=== PATIENT | male | born 1970 | race Caucasian/White ===

== ENCOUNTER 2018-09-06 03:00 | Emergency (ER) | payer BC ==
[~2018-09-06] VITALS: Wt 93.2 kg
[2018-09-06] MEDS ORDERED: EPINEPHrine 1 MG INJ IM STA (03:25)
[2018-09-06] MEDS ORDERED: DIPHENHYDRAMINE 50 MG INJ IV STA (03:25)
[2018-09-06] MEDS ORDERED: FAMOTIDINE 20 MG INJ IV STA (03:25)
[2018-09-06] MEDS ORDERED: METHYLPREDNISOLONE 125 MG INJ IV STA (03:25)
[2018-09-06] MEDS ORDERED: BEN25 PO (04:19)
[2018-09-06] MEDS ORDERED: PRED20TA PO (04:19)
[2018-09-06] MEDS ORDERED: FAMO-96 PO (04:19)
[2018-09-06] MEDS ORDERED: EPIN0.3P4 INJ (04:19)
[2018-09-06 05:05] VITALS: BP 137/85; PULSE 86; RESP 20
--- NOTE | 2018-09-06 05:21 | ERD ---
ER Documentation Chief Complaint Chief Complaint FACIAL SWELLING, ALLERGIC RASH HPI This is a 47-year-old male with no significant past medical history who is presenting with concerns of an allergic reaction. This evening after eating a peanut bar, the patient started to develop an itchy throat. He was concerned t hat his throat was closing. The patient also noticed facial and labial swelling. The patient had no tongue swelling. The patient also developed diffuse hives that were itchy as well. The patient reports that his voice seemed to change. However, he does not sound hoarse. He has not had any drooling episodes. He does not have stridor. He does not have wheezing. The patient is breathing comfortably and is in no distress at this time. The etiology of the reaction is not entirely clear. The patient has eaten peanuts his entire life. However, the patient reports that he has been eating more peanut bars recently. The patient also reports eating up with a local this afternoon, but this is also not new for him. The patient does not endorse any new clothes or linens or soaps or detergents or lotions. He has not been in any new environments for a prolonged period of time. The patient is not on any ROBINA inhibitors or angiotensin receptor blockers. The patient does not take any medications. The patient denies feeling sick recently. The patient denies fever or chills. The patient has had no headache or vision changes. The patient does not endorse neck or back pain. The patient denies lightheadedness or dizziness. The patient has had no chest pain or trouble breathing. The patient denies nausea or vomiting. The patient denies abdominal pain. The patient denies changes to bowel movements or urination. The patient has had no focal deficits. The patient has had no weakness or numbness or tingling to the face or extremities. ROS All systems reviewed and are negative except as per history of present illness. Medications Home Meds Active Scripts Epinephrine (Epipen 2-Schuyler) 0.3 Mg/0.3 Ml Pen.injctr, 1 EA INJ ONCE PRN for ALLERGIC REACTION, #1 EA Prov:CHIQUIS COELHO MD 09/06/18 Prednisone* (Prednisone*) 20 Mg Tab, 40 MG PO DAILY for 4 Days, TAB Prov:CHIQUIS COELHO MD 09/06/18 Famotidine* (Pepcid*) 20 Mg Tablet, 20 MG PO BID for 4 Days, TAB Prov:CHIQUIS COELHO MD 09/06/18 Diphenhydramine Hcl* (Benadryl*) 25 Mg Cap, 25 MG PO Q6 PRN for ALLERGIC REACTION, #30 TAB Prov:CHIQUIS COELHO MD 09/06/18 Reported Medications [None] No Conflict Check 11/18/09 Allergies Allergies: Coded Allergies: No Known Allergy (Verified Allergy, Mild, 11/17/09) PMhx/Soc Medical and Surgical Hx: pt denies Medical Hx History of Surgery: Yes (ORAL SX) Anesthesia Reaction: No Hx Neurological Disorder: No Hx Respiratory Disorders: No Hx Cardiac Disorders: No Hx Psychiatric Problems: No Hx Miscellaneous Medical Probl: No Hx Alcohol Use: Yes (SOCIALLY) Hx Substance Use: No Hx Tobacco Use: No Smoking Status: Never smoker FmHx Family History: No diabetes Physical Exam Vitals Vital Signs Date Temp Pulse Resp B/P (MAP) Pulse Ox O2 O2 Flow FiO2 Time Delivery Rate 09/06/18 72 22 138/99 98 Room Air 03:30 (112) 09/06/18 97.2 80 18 161/91 99 03:04 (114) Physical Exam Const: No apparent distress, well-developed, well-nourished Head: Normocephalic, Atraumatic Eyes: Normal Conjunctiva. Extraocular movements intact. Pupils equal, round and reactive to light ENT: Normal External Ears, Nose. Facial and labial swelling. Tongue is no rmal, no angioedema. Airway is patent. Neck: Full range of motion. No meningismus. No stridor. Resp: Clear to auscultation bilaterally, No wheezes, rales or rhonchi Cardio: Regular rate and rhythm. No murmurs, rubs or gallops Abd: Soft, non tender, non distended. Normal bowel sounds Skin: No petechiae. Diffuse urticarial rash. Back: No midline tenderness. No CVA tenderness Ext: No cyanosis, or edema Neur: Awake and alert, oriented 4. Cranial nerves intact. No facial droop. Normal strength, sensation and coordination. Psych: Normal Mood and Affect Results 24 hrs Current Medications Medications Dose Sig/Yung Start Time Status Last (Trade) Ordered Route PRN Stop Time Admin Dose Reason Admin 50 mg ONCE STAT 09/06/18 DC 09/06/18 Diphenhydrami IV 03:25 03:31 ne HCl 09/06/18 03:26 (Benadryl) Epinephrine 0.3 mg ONCE STAT 09/06/18 DC 09/06/18 IM 03:25 03:32 (EPINEPHrine) 09/06/18 03:26 Famotidine 20 mg ONCE STAT 09/06/18 DC 09/06/18 (Pepcid Iv) IV 03:25 03:32 09/06/18 03:26 125 mg ONCE STAT 09/06/18 DC 09/06/18 Methylprednis IV 03:25 03:31 olone Sodium 09/06/18 03:26 Succinate (Solu-Medrol) Procedures/MDM MDM The patient's presentation warrants further investigation. Previous medical records, if available, were reviewed. The patient presents for an urticarial rash and facial swelling with an itchy throat, consistent with an allergic reaction of unclear etiology. The patient's airway is patent and intact. The patient does not appear to be at risk of airway compromise. I do not see any evidence of angioedema. The patient does not appear to be an anaphylaxis. No evidence of Harpreet Jose Juan's syndrome, Kawasaki's, or sepsis. TREATMENT/DISPOSITION The patient was treated with epinephrine, Benadryl, Pepcid and Solu-Medrol with significant improvement of his symptoms. The patient's urticarial rash resolved. The patient's perioral edema significantly improved. The patient's throat symptoms resolved as well. The patient was observed in the emergency department with no recurrence of symptoms. The patient's dermatologic symptoms have stabilized while they have been evaluated in the department and are appropriate for outpatient work up. Upon ree valuation of the patient, symptoms have improved. No emergent diagnoses were identified. At this time, I feel that the patient stable for discharge. The patient was instructed to follow-up with a primary care physician in 1-3 days. I also recommended that the patient seek evaluation with an stem crusher. The patient will be given strict precautions with which to return to the emergency department. While the patient has eaten peanuts in the past, he endorses eating more peanuts than are typical of his diet recently. The patient was instructed to refrain from eating peanuts until following up with an stem crusher. Prescriptions: EpiPen, prednisone, Benadryl, Pepcid The patient's blood pressure was elevated at greater than 120/80 while in the emergency department. The patient was otherwise stable with no evidence of hypertensive urgency or emergency. The patient does not require admission for blood pressure control. I have discussed with the patient the risks of hypertension. I have instructed the patient to return to the ER for any new or worsening symptoms including chest pain, shortness of breath, headache, blurred vision, confusion, nausea, vomiting or LOC. I have advised the patient to follow up with the primary care physician for outpatient monitoring and treatment for hypertension in 1-3 days. Disclaimer: Inadvertent spelling and grammatical errors are likely due to EHR/dictation software use and do not reflect on the overall quality of patient care. Note that the electronic time recorded on this note does not necessarily reflect the actual time of the patient encounter. Departure Diagnosis: Primary Impression: Allergic reaction Encounter type: initial encounter Qualified Codes: T78.40XA - Allergy, unspecified, initial encounter Additional Impressions: Lip edema Facial swelling Urticarial rash Hives Food allergy Condition: Stable Patient Instructions: Allergic Reaction, Other (General) Referrals: DOCTOR,NOT ON STAFF (PCP) Additional Instructions: Thank you for for coming to [facility] for your care today. Please ask your nurse or provider if you have questions about your care today and do not leave until all your questions have been answered. Please use any medications given as directed and follow-up with your doctor (or the doctor you were referred to) in the next 1-3 days. If you do not have a primary care doctor you may follow up at the [facility] or [facility] (listed below). Y ou may also use motrin and tylenol as needed for fever and/or pain unless instructed otherwise by your provider or nurse. Indications for more urgent follow-up have been discussed, but you may return to the Emergency Department at ANY time for any worrisome or worsening symptoms. If you have abdominal pain, please know that no test or exam you received is perfect and you should follow up within 8 hours for continued pain. If you had any imaging studies today, such as an X-Ray or CT Scan, these studies will be reviewed later by a radiologist. You will be called if there are important findings that were not identified today, so make sure the contact information you provided at registration is correct. If you received any narcotic pain control medicine today, such as Vicodin, Morphine or Dilaudid, your coordination and judgment may be affected for a number of hours. Please do not drive or operate heavy machinery, and you may want someone to assist you at home. If you were given a prescription for narcotic medication, be aware that it is very addictive- use sparingly and only if necessary. PLEASE SEEK FURTHER EVALUATION AND MANAGEMENT AT YOUR DOCTORS OFFICE WITHIN THE NEXT 1-3 DAYS. IT IS YOUR RESPONSIBILITY TO MAKE AN APPOINTMENT FOR FOLOW-UP CARE. IF YOU HAVE A PRIMARY DOCTOR, PLEASE CALL THEIR OFFICE TO SCHEDULE AN APPOINTMENT FOR FOLLOW UP. IF YOU DO NOT HAVE A PRIMARY DOCTOR YOU CAN CALL OUR PHYSICIAN REFERRAL HOTLINE AT IF YOU CAN NOT AFFORD TO SEE A PHYSICIAN YOU CAN CHOSE FROM THE FOLLOWING [facility] CLINICS: [facility] [address] [facility]. [facility] [address] [facility] [facility] [address] [facility] [facility] [address] [facility]. [facility] [address] [facility] [facility]. [address] CHIQUIS NUNEZ MD Sep 06, 2018 05:21
== END 2018-09-06 05:19 | disposition home or self-care (01) ==
LOC: E/R 03:00
DX: T78.1XXA Other adverse food reactions, not elsewhere classified, initial encounter (principal); L50.0 Allergic urticaria; Z91.010 Allergy to peanuts
CPT/HCPCS: 96372; 96374; 96375; 99284; J0171; J1200; J2930